=== PATIENT | female | born 1955 | race Caucasian/White ===

== ENCOUNTER 2017-04-10 07:36 | Outpatient (CLI) | payer OTHER ==
[2017-04-10 08:01] LABS: BASOPHILS # (AUTO) 0.1 K/uL (0-0.2); BASOPHILS % (AUTO) 1.2 % (0.0-3.0); EOSINOPHILS # (AUTO) 0.2 K/ul (0.0-0.7); EOSINOPHILS % (AUTO) 4.4 % (0.0-7.0); HEMATOCRIT 39.9 % (37.0-47.0); HEMOGLOBIN 13.4 g/dl (12.0-16.0); IMMATURE GRANULOCYTE % (AUTO) 0.2 % (0.0-5.0); LYMPHOCYTES # (AUTO) 1.4 K/uL (0.60-3.4); LYMPHOCYTES % (AUTO) 27.5 (10.0-50.0); MEAN CORPUSCULAR HEMOGLOBIN 32.1 pg (27.0-31.0); MEAN CORPUSCULAR HGB CONC 33.6 (31.8-35.4); MEAN CORPUSCULAR VOLUME 95.5 fl (81.0-99.0); MONOCYTES # (AUTO) 0.4 K/uL (0.4-2.0); NEUTROPHILS # (AUTO) 2.9 K/ul (2.0-6.9); NEUTROPHILS % (AUTO) 58.7; PLATELET COUNT 209 10^3/uL (140-440); RED BLOOD COUNT 4.18 10^6/ul (4.20-5.40); WHITE BLOOD COUNT 4.99 K/ul (4.6-10.2)
[2017-04-10 08:35] LABS: ALBUMIN 3.8 g/dL (3.4-5.0); ALBUMIN/GLOBULIN RATIO 1.09; ANION GAP 11.2; BILIRUBIN,TOTAL 0.46 mg/dL (0.00-1.20); BUN/CREATININE RATIO 28.37; CREATININE 0.74 mg/dL (0.60-1.30); POTASSIUM 4.2 mmol/L (3.5-5.10); TOTAL PROTEIN 7.3 g/dL (5.8-8.1)
== END 2017-04-10 07:37 | disposition home or self-care (01) ==
LOC: LAB 07:36
PROVIDERS: ATTEND Family Medicine
DX: E03.9 Hypothyroidism, unspecified (principal); I10 Essential (primary) hypertension; R73.01 Impaired fasting glucose
CPT/HCPCS: 36415; 80053; 83036; 84439; 84443; 85025

== ENCOUNTER 2017-04-22 10:00 | Outpatient (CLI) | payer OTHER ==
--- NOTE | 2017-04-22 11:28 | DEXA ---
EXAM: Bone density HISTORY: Postmenopausal female with hypertension, blood clots and vitamin D usage. COMPARISON: None TECHNIQUE: Digital images of the thoracolumbar spine and hips were provided and calculation of bone density was obtained. FINDINGS: Digital images demonstrate no compression deformities of the thoracolumbar spine. DEXA scan of the lumbar spine is of good quality. The total BMD equals 0.876 grams per square centimeter. T-score is - 2.5 and Z-score of - 1.2. DEXA of the hips were performed and of good quality. Total bone marrow density of 8.783 grams per square centimeter. T score is - 1.8 and Z-score is - 0.8. IMPRESSION: Bone density of the hips and lumbar spine demonstrate osteopenia by WHO criteria. T score greater than -1 is normal T score -1 to -2.5 is osteopenia T score less than - 2.5 is osteoporosis
--- NOTE | 2017-04-23 07:34 | MAMMO ---
EXAM: Digital screening mammogram HISTORY: Annual screening mammogram COMPARISON: Mammogram 03/02/2015 FINDINGS: Bilateral CC and MLO views of the breasts were performed digitally and demonstrate hetero geneous that breast density (50 - 75%). Breast density limits this evaluation. There is no abnormal nodule or calcification. There is no significant interval change. IMPRESSION: There is no new suspicious calcification or nodule RECOMMENDATION: Annual screening mammogram BIRADS category I: Negative
== END 2017-04-22 10:01 | disposition home or self-care (01) ==
LOC: RAD 10:00
PROVIDERS: ATTEND Family Medicine
DX: Z12.31 Encounter for screening mammogram for malignant neoplasm of breast (principal); Z78.0 Asymptomatic menopausal state

== ENCOUNTER 2018-07-31 12:38 | Outpatient (CLI) | payer OTHER ==
--- NOTE | 2018-07-31 13:30 | US ---
EXAM: Right lower extremity venous Doppler History: Right lower extremity pain. Technique: Multiple sonographic images through the right lower extremity were obtained. Color duple x Doppler was used to interrogate vascular flow. Findings: The right common femoral, greater saphenous, profunda, superficial femoral, popliteal, per bynum and posterior tibial veins demonstrate spontaneous flow with normal compression and normal augm entation. The right anterior tibial vein was not seen. Impression: No sonographic evidence for deep venous thrombosis
== END 2018-07-31 12:39 | disposition home or self-care (01) ==
LOC: RAD 12:38
PROVIDERS: ATTEND Nurse Practitioner Family
DX: M79.604 Pain in right leg (principal); Z86.718 Personal history of other venous thrombosis and embolism

== ENCOUNTER 2018-08-03 16:01 | Outpatient (CLI) | payer OTHER ==
--- NOTE | 2018-08-03 16:44 | DI ---
EXAM: Two views of the right knee. History: Right knee pain. Findings: No acute fracture or dislocation. Joint effusion is present. Moderate to severe narrowin g of the medial compartment with marginal sclerosis and osteophyte formation. Moderate narrowing of the patellofemoral compartment and mild narrowing of the lateral compartment. Subcutaneous edema see n at the knee. Impression: 1. No acute osseous abnormality. 2. 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 3. Joint effusion and subcutaneous edema
== END 2018-08-03 16:02 | disposition home or self-care (01) ==
LOC: RAD 16:01
PROVIDERS: ATTEND Family Medicine
DX: M25.561 Pain in right knee (principal)